=== PATIENT | male | born 2005 | race Caucasian/White ===

== ENCOUNTER 2025-07-21 22:26 | Inpatient (IN) | payer OTHER, SELFPAY ==
[2025-07-21 23:51] VITALS: BMI 33.9
[2025-07-22] MEDS ORDERED: HYDROcodone/Acetaminophen 7.5/325 mg Tablet PO PRN (00:34)
[2025-07-22] MEDS ORDERED: Gentamicin Sulfate 80 MG in Premix 1 BAG IVPB SCH (00:45)
[2025-07-22] MEDS: Ketorolac Tromethamine 30 MG (1 mL) VIAL IVP SCH (05:07)
[2025-07-22] MEDS: Gentamicin Sulfate 80 MG in Premix 1 BAG IVPB SCH (05:35)
[2025-07-22] MEDS ORDERED: Bacitracin Zinc Ointment 30 gm TUBE ONE (06:16)
[2025-07-22] MEDS: Vancomycin 1.5 GM / NS 500 ML VIAL-2-BAG IVPB SCH (06:20)
[2025-07-22] MEDS ORDERED: PROPOFOL 20 ML ONE (06:49)
[2025-07-22] MEDS ORDERED: Lidocaine 1% PF 5 ML VIAL ONE (06:49)
[2025-07-22] MEDS ORDERED: fentaNYL PF 100 MCG/2 ML SYRINGE ONE (06:51)
[2025-07-22] MEDS ORDERED: Ondansetron PF 4 MG/2 ML Vial ONE (07:10)
[2025-07-22] MEDS ORDERED: Vancomycin 1 GM in Premix 1 BAG IVPB SCH (09:00)
[2025-07-22] MEDS: HYDROcodone/Acetaminophen 7.5/325 mg Tablet PO PRN (11:28)
[2025-07-22 12:09] VITALS: BMI 33.9
[2025-07-22] MEDS ORDERED: Ketorolac Tromethamine 30 MG (1 mL) VIAL IVP PRN (19:16)
[2025-07-22] MEDS: Pregabalin 50 MG CAP PO SCH (20:13)
[2025-07-23 06:16] LABS: Hematocrit 36.6 % (42.0-52.0); Hemoglobin 12.4 g/dL (14.0-18.0)
[2025-07-23 06:28] LABS: Vancomycin, Random 6.0 ug/mL (See Comment)
[2025-07-23 10:37] LABS: Calc. Creatinine Clearance 191.0 mL/min (70-130)
[2025-07-23] MEDS ORDERED: fentaNYL PF 100 MCG/2 ML SYRINGE ONE (12:37)
[2025-07-23] MEDS ORDERED: Lidocaine 1% PF 5 ML VIAL ONE (12:37)
[2025-07-23] MEDS ORDERED: PROPOFOL 20 ML ONE (12:37)
[2025-07-23] MEDS ORDERED: Ondansetron PF 4 MG/2 ML Vial ONE (12:38)
[2025-07-23] MEDS ORDERED: Ketamine In 0.9 % NaCl 50 MG/5 ML SYRINGE ONE (13:00)
[2025-07-23] MEDS ORDERED: HYDROmorphone 0.5 MG/0.5 ML SYRINGE ONE ×2 (14:19→14:34)
[2025-07-23] MEDS: Vancomycin HCl 1.25 GM in Sodium Chloride 0.9% 250 ML 250 ML IVPB SCH (15:21)
[2025-07-23 16:52] VITALS: BP 129/75; TEMP 98.2
== END 2025-07-23 17:25 | disposition home or self-care (01) | DRG 581 ==
LOC: SURG A 23:33
PROVIDERS: ADMIT Orthopaedic Surgery Hand Surgery; ATTEND Orthopaedic Surgery Hand Surgery
PROC: 0JBK0ZZ Excision of Left Hand Subcutaneous Tissue and Fascia, Open Approach (ICD-10-PCS; principal; 2025-07-21)
PROC: 0JBK0ZZ Excision of Left Hand Subcutaneous Tissue and Fascia, Open Approach (ICD-10-PCS; 2025-07-23)
DX: S61.432A Puncture wound without foreign body of left hand, initial encounter (principal); F41.9 Anxiety disorder, unspecified; S64.12XA Injury of median nerve at wrist and hand level of left arm, initial encounter; Z79.891 Long term (current) use of opiate analgesic; Z79.899 Other long term (current) drug therapy; Y93.89 Activity, other specified; Y92.89 Other specified places as the place of occurrence of the external cause; W32.0XXA Accidental handgun discharge, initial encounter
CPT/HCPCS: 36415; 80202; 82565; 85014; 85018; 97139; J0665; J1100; J1171; J1580; J1885; J2250; J2704; J3373; J3490; J7030; J7042; J7050

== ENCOUNTER 2025-07-27 12:32 | Day surgery (SDC) | payer OTHER ==
[2025-07-26 14:11] VITALS: BMI 33.9
[2025-07-27] MEDS ORDERED: CEFAZOLIN 2 GM VIAL ONE (13:18)
[2025-07-27] MEDS ORDERED: fentaNYL PF 100 MCG/2 ML SYRINGE ONE ×3 (13:23→17:08)
[2025-07-27] MEDS ORDERED: Lidocaine 1% PF 5 ML VIAL ONE (13:23)
[2025-07-27] MEDS ORDERED: PROPOFOL 0 ML ONE (13:23)
[2025-07-27] MEDS ORDERED: Bacitracin Zinc Ointment 30 gm TUBE ONE (16:13)
[2025-07-27] MEDS ORDERED: Thrombin 5000 UNITS/5 ML VIAL ONE (16:13)
[2025-07-27] MEDS ORDERED: PROPOFOL 20 ML ONE ×2 (16:26→16:27)
[2025-07-27] MEDS ORDERED: Ondansetron PF 4 MG/2 ML Vial ONE (16:29)
[2025-07-27] MEDS ORDERED: HYDROcodone/Acetaminophen 10/325 mg Tablet ONE (18:48)
[2025-07-27] MEDS ORDERED: Ketorolac Tromethamine 30 MG (1 mL) VIAL ONE (19:06)
== END 2025-07-27 19:30 | disposition home or self-care (01) ==
LOC: SDC 12:32
PROVIDERS: ATTEND Orthopaedic Surgery Hand Surgery
PROC: 0HRFX74 Replacement of Right Hand Skin with Autologous Tissue Substitute, Partial Thickness, External Approach (ICD-10-PCS; principal; 2025-07-27)
PROC: 0HRGX74 Replacement of Left Hand Skin with Autologous Tissue Substitute, Partial Thickness, External Approach (ICD-10-PCS; principal; 2025-07-27)
DX: S61.402A Unspecified open wound of left hand, initial encounter (principal); X58.XXXA Exposure to other specified factors, initial encounter
CPT/HCPCS: J0169; J0665; J1100; J1885; J2704